=== PATIENT | female | born 1980 | race Caucasian/White ===

== ENCOUNTER 2018-02-26 18:20 | Emergency (ER) | payer MEDICAID ==
[~2018-02-26] VITALS: Ht 165.1 cm; Wt 80.3 kg
[2018-02-26 18:37] VITALS: Ht 165.1 cm; Wt 80.3 kg
[2018-02-26 20:24] VITALS: BP 119/77
== END 2018-02-26 20:24 | disposition home or self-care (01) ==
LOC: ED 18:20
DX: S80.862A Insect bite (nonvenomous), left lower leg, initial encounter (principal); S80.861A Insect bite (nonvenomous), right lower leg, initial encounter; S40.862A Insect bite (nonvenomous) of left upper arm, initial encounter; S40.861A Insect bite (nonvenomous) of right upper arm, initial encounter; R21 Rash and other nonspecific skin eruption; W57.XXXA Bitten or stung by nonvenomous insect and other nonvenomous arthropods, initial encounter; Y93.89 Activity, other specified; Y92.89 Other specified places as the place of occurrence of the external cause; Y99.8 Other external cause status
CPT/HCPCS: J1200; J7512

== ENCOUNTER 2019-01-11 19:34 | Emergency (ER) | payer OTHER ==
[~2019-01-11] VITALS: Ht 165.1 cm; Wt 79.4 kg
[2019-01-11 20:00] VITALS: Ht 165.1 cm; Wt 79.4 kg
[2019-01-11 22:24] VITALS: BP 113/74
== END 2019-01-11 22:24 | disposition home or self-care (01) ==
LOC: ED 19:34
DX: M94.0 Chondrocostal junction syndrome [Tietze] (principal); R03.0 Elevated blood-pressure reading, without diagnosis of hypertension
CPT/HCPCS: J1885; Q0162